=== PATIENT | female | born 1955 | race Caucasian/White ===

== ENCOUNTER 2016-10-15 05:07 | Observation (INO) | payer BC ==
--- NOTE | ~2016-10-15 | TEE ---
Transesophageal Echocardiogram [id number] [place]. [address] NAME: RICHIE GONZALES : 53 STATUS : REG REF PAT#: [id number] AGE: 61 ADM/REG DATE : 10/15/16 MR#: [id number] REPORT SERV DATE: 10/15/16 DICTATED BY: JOSE FIGUEREDO DATE: 10/15/16 REPORT STATUS : Draft TRANSCRIBED BY: EDD DATE: 10/15/16 TRANSESOPHAGEAL ECHOCARDIOGRAM INDICATIONS: A 61-year-old woman with atrial fibrillation. PROCEDURE: After questions were answered and consents were signed, the patient was sedated with propofol per Anesthesia. The probe was placed in the midesophagus and images were obtained without difficulty. At the conclusion of the procedure, the probe was withdrawn and patient remained sedated to have her procedure. 2D INTERPRETATION: The left ventricular size and function was normal. The mitral valve opened adequately. No prolapse was noted. No thrombus was noted in the left atrium. The left atrial appendage was evaluated and interrogated in multiple views. There was no thrombus present. There was also good contractility noted of the left atrial appendage. Doppler flow velocities in the appendage approached 40 cm/second. The interatrial septum was intact. The right atrium was normal. The right ventricle was normal. The tricuspid valve was normal. No prolapse was noted. The aortic valve was trileaflet with good visualization. It opened well. The pulmonic valve was not well visualized. The right ventricular size and function was normal. No significant pericardial disease was noted. No atherosclerotic plaquing was noted in the aorta. COLOR FLOW: Trace mitral and tricuspid regurgitation with no significant aortic insufficiency. Trace pulmonic insufficiency. DOPPLER: Doppler flow velocities in the left atrial appendage approached 40 cm/second. CONCLUSION: 1. NORMAL LEFT VENTRICULAR SYSTOLIC FUNCTION WITH ESTIMATED LVEF OF 60%. 2. NO THROMBUS IN THE LEFT ATRIUM NOR THE LEFT ATRIAL APPENDAGE IN THIS PATIENT IN SINUS RHYTHM. WO/EDD Jose Figueredo M.D., Ph.D, F.A.C.C. / [id number] CC: Lynsey Peña M.D.
[~2016-10-15 05:07] MED LIST: ASABAYER PO; FLONASE NAS; RELA5 PO; RYTHMOL SR325 MG PO; ZANTAC150 MG PO; ZOCOR20 PO
[2016-10-15 06:05] LABS: BASOPHILS 1.1 %; BASOPHILS ABSOLUTE 0.09 10/3/uL (0.0-0.16); EOSINOPHILS 4.5 %; EOSINOPHILS ABSOLUTE 0.37 10/3/uL (0.0-0.53); HEMATOCRIT 35.3 % (36.0-48.0); HEMOGLOBIN 11.6 g/dL (12.0-16.0); IMMATURE GRANULOCYTES 0.4 %; IMMATURE GRANULOCYTES ABSOLUTE 0.03 10/3/uL (0.0-0.11); LYMPHOCYTES 26.5 %; LYMPHOCYTES ABSOLUTE 2.17 10/3/uL (0.67-4.30); MEAN CORPUS HGB CONC 32.9 g/dL (32.0-36.0); MEAN CORPUSCULAR HEMOGLOB 29.9 pg (26.0-34.0); MEAN PLATELET VOLUME 10.7 fL (9.2-13.0); MONOCYTES ABSOLUTE 1.39 10/3/uL (0.21-1.20); NEUTROPHILS 50.5 %; NEUTROPHILS ABSOLUTE 4.13 10/3/uL (2.02-8.40); PLATELET COUNT 308 10/3/uL (150-400); RBC DISTRIBUTION WIDTH 14.5 % (12.0-16.0); RED CELL COUNT 3.88 10/6/uL (4.0-5.6); WHITE BLOOD CELLS 8.2 10/3/uL (4.5-10.5)
[2016-10-15 06:07] LABS: MANUAL DIFF NO %
[2016-10-15 06:25] LABS: BUN (BLOOD UREA NITROGEN) 15 MG/DL (6-23); CALCIUM, SERUM 8.9 MG/DL (8.5-10.4); CHLORIDE, SERUM 107 MMOL/L (96-112); CO2 (CARBON DIOXIDE) 27 MMOL/L (24-34); CREATININE 0.82 MG/DL (0.55-1.02); GFR AFRICAN AMERICAN 89 ML/MIN (>=60); GFR NON AFRICAN AMERICAN 77 ML/MIN (>=60); GLUCOSE, SERUM 99 MG/DL (60-99); POTASSIUM, SERUM 3.6 MMOL/L (3.5-5.3); SODIUM, SERUM 143 MMOL/L (135-148)
[2016-10-16] MEDS ORDERED: ELIQUIS 5 MG TAB5 MG PO (09:12)
== END 2016-10-16 09:49 | disposition home or self-care (01) ==
LOC: CORLMH 05:07 → SSU1 05:10
PROVIDERS: Internal Medicine Cardiovascular Disease
PROC: 02583ZZ Destruction of Conduction Mechanism, Percutaneous Approach (ICD-10-PCS; principal; 2016-10-16)
PROC: 02K83ZZ Map Conduction Mechanism, Percutaneous Approach (ICD-10-PCS; 2016-10-16)
PROC: 4A023FZ Measurement of Cardiac Rhythm, Percutaneous Approach (ICD-10-PCS; 2016-10-16)
PROC: 4A0234Z Measurement of Cardiac Electrical Activity, Percutaneous Approach (ICD-10-PCS; 2016-10-16)
DX: I48.0 Paroxysmal atrial fibrillation (principal); I48.3 Typical atrial flutter; I10 Essential (primary) hypertension; I34.0 Nonrheumatic mitral (valve) insufficiency; K21.9 Gastro-esophageal reflux disease without esophagitis; I49.5 Sick sinus syndrome; E78.5 Hyperlipidemia, unspecified; E66.9 Obesity, unspecified; Z68.41 Body mass index [BMI] 40.0-44.9, adult; Z82.49 Family history of ischemic heart disease and other diseases of the circulatory system; Z88.0 Allergy status to penicillin; Z88.1 Allergy status to other antibiotic agents; Z88.2 Allergy status to sulfonamides; Z91.013 Allergy to seafood; Z79.82 Long term (current) use of aspirin; Z79.51 Long term (current) use of inhaled steroids; Z79.899 Other long term (current) drug therapy
CPT/HCPCS: 80048; 82962; 85025; 85347; 93005; 93312; 93320; 93325; 93613; 93656; 93657; 93662; 96374; 96375; 96376; A9270-GY; C1732; C1759; C1769; C1781; C1894; G0378; J1200; J1885; J2405; J2710; J2930; J3010; Q9967